=== PATIENT | male | born 1985 | race Caucasian/White ===

== ENCOUNTER 2019-02-05 11:33 | Emergency (ER) | payer MEDICAID, OTHER ==
[~2019-02-05] VITALS: Ht 185.4 cm; Wt 85.0 kg
[~2019-02-05 11:33] MED LIST: CLIN150C8 PO; LIDOcaine 1% W/epiNEPHrine 1:100,000 20ml vial ONE; RANI300T7 PO
[2019-02-05 12:03] VITALS: BP 132/77
[2019-02-05] MEDS ORDERED: CEPH-572 PO (13:19)
[2019-02-05] MEDS ORDERED: SULF1TAB49 PO (13:19)
[2019-02-05] MEDS ORDERED: TETanus/Pertussis (Acell)/Diphther VAC/PF (Tdap-Adult) 0.5ml syringe IMVAC ONE (13:20)
== END 2019-02-05 13:53 | disposition home or self-care (01) ==
LOC: ER 11:34
DX: L02.415 Cutaneous abscess of right lower limb (principal); F12.90 Cannabis use, unspecified, uncomplicated; Z98.890 Other specified postprocedural states; Z79.899 Other long term (current) drug therapy
CPT/HCPCS: 10060; 99283

== ENCOUNTER 2019-05-21 20:08 | Emergency (ER) | payer MEDICAID ==
[~2019-05-21] VITALS: Ht 188 cm; Wt 83.0 kg
[~2019-05-21 20:08] MED LIST changes: -LIDOcaine 1% W/epiNEPHrine 1:100,000 20ml vial ONE
[2019-05-21] MEDS ORDERED: acetaminophen 325mg tablet PO ONE (20:15)
[2019-05-21] MEDS ORDERED: ALBU8HFA PO (21:00)
[2019-05-21 21:12] VITALS: BP 124/81
== END 2019-05-21 21:14 | disposition home or self-care (01) ==
LOC: ER 20:09
DX: J20.9 Acute bronchitis, unspecified (principal); F17.200 Nicotine dependence, unspecified, uncomplicated; F12.90 Cannabis use, unspecified, uncomplicated; Z79.2 Long term (current) use of antibiotics; Z79.899 Other long term (current) drug therapy
CPT/HCPCS: 99283

== ENCOUNTER 2020-11-04 09:10 | Emergency (ER) | payer MEDICAID ==
[~2020-11-04] VITALS: Ht 188 cm; Wt 83.7 kg
[2020-11-04 09:20] VITALS: BP 133/96
[2020-11-04] MEDS ORDERED: HYDROcodone/acetaminophen 10/325mg tab PO ONE (10:45)
--- NOTE | 2020-11-04 10:56 | NUR ---
PATIENT IS SLEEPY AND HAVING TROUBLE KEEPING EYES OPEN. COMPLAINING OF PAIN BUT THEN DOZES OFF. JAQUAN CHUN AWARE. OK TO HOLD [facility] AT THIS TIME.
[2020-11-04] MEDS ORDERED: TRAM50TA2 PO (11:06)
[2020-11-04] MEDS ORDERED: IBUP-1984 PO (11:06)
--- NOTE | 2020-11-04 11:06 | NUR ---
PATIENT RE-EVALUATED BY JAQUAN CHUN. OK TO GIVE [facility]. PATIENT COMPLAINING OF 10/10 PAIN.
== END 2020-11-04 11:41 | disposition home or self-care (01) ==
LOC: ER 09:11
DX: S63.501A Unspecified sprain of right wrist, initial encounter (principal); M25.531 Pain in right wrist; F12.90 Cannabis use, unspecified, uncomplicated; Z79.2 Long term (current) use of antibiotics; Z98.890 Other specified postprocedural states; Z79.899 Other long term (current) drug therapy; V00.131A Fall from skateboard, initial encounter; Y93.89 Activity, other specified; Y92.89 Other specified places as the place of occurrence of the external cause; Y99.8 Other external cause status
CPT/HCPCS: 29125; 73110; 73130; 99283; 99284

== ENCOUNTER 2022-05-10 15:43 | Emergency (ER) | payer MEDICAID ==
[~2022-05-10] VITALS: Ht 185.4 cm; Wt 88.0 kg
[2022-05-10 15:44] VITALS: BP 171/101
== END 2022-05-10 16:50 | disposition left against medical advice (07) ==
LOC: ER 15:43
DX: L02.91 Cutaneous abscess, unspecified (principal); Z53.21 Procedure and treatment not carried out due to patient leaving prior to being seen by health care provider

== ENCOUNTER 2024-11-15 16:10 | Emergency (ER) | payer MEDICAID ==
[~2024-11-15] VITALS: Ht 177.8 cm; Wt 84.1 kg
[~2024-11-15 16:10] MED LIST changes: +CLIN-214 PO; -CLIN150C8 PO
[2024-11-15] MEDS ORDERED: HYDR-3965 PO ×2 (17:56→17:59)
[2024-11-15] MEDS ORDERED: ANBESOL TP (17:56)
[2024-11-15] MEDS ORDERED: CLIN300C63 PO (17:56)
[2024-11-15] MEDS ORDERED: CLIN-224 PO (17:59)
--- NOTE | 2024-11-15 18:00 | Physician Documentation ---
HPI ~ General Chief Complaint: Tooth Problem Stated Complaint: MOUTH PAIN Time Seen by MD: 16:55 OK to notify your PCP?: Yes Primary Medical Doctor: CHAVEZ Source: patient Mode of Arrival: POV Exam Limitations: no limitations History of Present Illness HPI Comment 39-year-old male with dental pain as multiple teeth that have been worn down to the gum and appear broken on the left lower jaw. He states he has a dental appointment December 08 that is upcoming to have a couple of these teeth removed. He has not had any antibiotics yet for this issue. Medication Reconciliation Allergies: Coded Allergies: cephalexin (Verified Allergy, Unknown, 11/15/24) Scheduled Benzocaine* (Anbesol*), 1 APPLIC TP Q2H Clindamycin HCL* (Clindamycin HCL*), 1 CAP PO Q8H Ranitidine Hcl (Zantac), 1 TAB PO HS Scheduled PRN Hydrocodone Bit/Acetaminophen 5/325 MG (Pag[place] 5/325 MG), 1 TAB PO TID PRN PRN for pain Past Medical History Past Medical History: Extremity Fracture Past Surgical History: abdominal surgery Alcohol Use: None Drug Use: marijuana Lives with: S/O Lives In: Home Review of Systems All Other Systems at this time: Reviewed and Negative Physical Exam Vital Signs: RN Vital Signs have been reviewed: Yes, Temperature: 97.8, Source: Temporal, Heart Rate: 68, Respiratory Rate: 18, BP: 173/104, Pulse Oximetry: 98, Weight: 84.090 Oxygen Flow Rate: 0 Pulse Oximetry Reflects: adequate oxygenation Physical Exam General: Alert, no distress. HEENT: No injection, moist mucous membranes. Neck: Full range of motion. Respiratory: No respiratory distress, equal chest rise and fall. Chest: No accessory muscle use. Cardiovascular: Regular rate and rhythm. Gastrointestinal: Nondistended. Extremities: Normal range of motion, no deformity. Neurologic: Oriented x4. Psychiatric: Normal mood and affect. Skin: Normal color, warm and dry. Mouth/Throat: normal mouth inspection Palate: normal inspection Teeth/Gums: carious, missing teeth, tender, gingiva redness, gingiva swelling Teeth/Gums teeth # 19, 20 and 21 Face: normal inspection Progress Results/Orders Reviewed/noted all lab results: Yes Results/Orders Orders - PEG MARTINEZ [employer] Clindamycin Capsule (Cleocin Capsule) (8/10/25 18:00) Hydrocodone/Apap 5/325mg Tab ([place] 5/32 (11/15/24 18:00) Naproxen Tablet (Naprosyn Tablet) (11/15/24 18:00) Vital Signs 11/15/24 16:12 Temp 97.8 Pulse 68 Resp 18 B/P (MAP) 173/104 Pulse Ox 98 O2 Flow Rate 0 Medical Decision Making Additional info obtained from: old records Findings 39-year-old male with dental abscess to left lower jaw. He has multiple teeth that we will need removed. He states that he has a dental appointment coming up on December 08. Prescribed clindamycin, benzocaine and Pag[place] to help with the pain and infection. Differential Dx:Considerations: Include: Facial Cellulitis, Periapical abscess, Pulpitis, Tooth eruption, Tooth Fracture, Trigeminal neuralgia, Tooth subluxation Departure Disposition: HOME / SELF CARE / HOMELESS Impression: Primary Impression: Dental abscess Condition: Stable Discharge Instructions: Dental Abscess Additional Instructions: Follow up with dentist as scheduled and return back here for any new or worsening symptoms. Referrals: NO PRIMARY CARE PROVIDER (PCP) Prescriptions Hydrocodone Bit/Acetaminophen 5/325 MG (P[place]eland 5/325 MG) 5 Mg/325 Mg Tablet 1 TAB PO TID PRN PRN for pain for 5 Days, #15 TAB Prov: PEG MARTINEZ [employer] 11/15/24 Clindamycin HCL* (Clindamycin HCL*) 300 Mg Capsule 1 CAP PO Q8H for 10 Days, #30 CAP 0 Refills Prov: PEG MARTINEZ [employer] 11/15/24 Benzocaine* (Anbesol*) 12 Ml Bottle 1 APPLIC TP Q2H for 7 Days, #1 EACH Prov: PEG MARTINEZ [employer] 11/15/24 Education Educated: Patient Educated regarding: diagnosis, treatment, prognosis, need for follow up Additional Comment Medical Screen Exam This patient recieved a medical screening examination. After reviewing the individual's medical complaints with presenting symptoms and performing an appropriate physical examination, it was determined that no immediate life- threatening emergency medical condition is present. This individual is also not a women having contractions. Signature Scribe Signature: . Attestation: Parts of this note were created using [employer] voice recognition software program. While efforts were made to correct any mistakes made by this voice recognition software program, nonsensical phrases may remain in this note. In addition, there may be errors and syntax, grammar, content and spelling. Scribed for Peg Martinez by Peg Watts NP . 11/15/24 18:02 PEG MARTINEZ Nov 15, 2024 18:00
[2024-11-15] MEDS: HYDROcodone/acetaminophen 5mg/325mg tablet PO ONE (18:08)
[2024-11-15 18:15] VITALS: BP 170/86; PULSE 86; RESP 16; TEMP 97.8; O2SAT 99
== END 2024-11-15 18:18 | disposition home or self-care (01) ==
LOC: ER 16:12
DX: K04.7 Periapical abscess without sinus (principal); Z88.1 Allergy status to other antibiotic agents
CPT/HCPCS: 99284

== ENCOUNTER 2024-12-09 17:02 | Emergency (ER) | payer MEDICAID ==
[~2024-12-09] VITALS: Ht 185.4 cm; Wt 90.5 kg
[~2024-12-09 17:02] MED LIST changes: -CLIN-214 PO; +CLIN-224 PO
[2024-12-09 17:44] VITALS: BP 110/77; PULSE 67; RESP 18; O2SAT 99
--- NOTE | 2024-12-09 17:52 | Physician Documentation ---
History of Present Illness ~ Chief Complaint: Medical Clearance Stated Complaint: DOCTOR REFERAL Time Seen by MD: 17:46 Primary Medical Doctor: CHAVEZ CASTELLANOS Patient is seen today with complaints of needing an EKG as requested by the methadone clinic possibly to increase patient's methadone dose. Patient denies any chest pain or shortness of breath or abdominal pain or nausea, vomiting, diarrhea. Patient has no other concern or complaint at this time. Tetanus within 5 years?: No Medication Reconciliation Allergies: Coded Allergies: cephalexin (Verified Allergy, Unknown, 11/15/24) Scheduled Clindamycin HCL* (Clindamycin HCL*), 1 CAP PO Q8H Ranitidine Hcl (Zantac), 1 TAB PO HS Past Medical History Past Medical History: Extremity Fracture Past Surgical History: abdominal surgery Alcohol Use: None Drug Use: marijuana Lives with: S/O Lives In: Home Review of Systems Constitutional: Denies: chills, fever, weakness Eyes: Denies: pain, blurred vision ENT: Denies: ear pain, nose pain, throat pain, mouth pain Respiratory: Denies: cough, shortness of breath Cardiovascular: Denies: chest pain, palpitations Gastrointestinal: Denies: abdominal pain, nausea, vomiting Genitourinary: Denies: burning, dysuria Male Genitalia: Denies: penile discharge, testicular pain Neurological: Denies: headache, dizziness Musculoskeletal: Denies: pain, swelling Integumentary: Denies: rash, lesions Allergic/Immunologic: Denies: hives, itching Hematologic/Lymphatic: Denies: no symptoms reported Psychiatric: Denies: depression, anxiety Physical Exam Vital Signs: Temperature: 97.8, Source: Temporal, Heart Rate: 67, Respiratory Rate: 18, BP: 110/77, Pulse Oximetry: 99, Weight: 90.450 Physical Exam General: Awake and Alert, no acute distress. HEENT: Conjunctiva pink, Sclera clear, Mucus Membranes moist. Neck: Supple without masses and tenderness. Resp: Unlabored. Lungs clear to auscultation bilaterally. Heart: Regular Rate and rhythm, normal S1 and S2 without murmur, rub or gallop. Abdomen: Soft and non tender no organomegaly Extremities: No cyanosis,clubbing or edema. Skin: Warm and Dry. Progress Results/Orders Results/Orders Vital Signs 12/09/24 17:44 Temp 97.8 Pulse 67 Resp 18 B/P (MAP) 110/77 Pulse Ox 99 EKG/XRAY/CT/US/VASC/MRI EKG : Additional Comment EKG interpreted by myself today shows normal sinus rhythm, regular rate at 75 beats per minute, no ST segment elevation or ischemic changes and no axis deviation. Medical Decision Making Findings Patient is seen today with complaints of needing an EKG as requested by the methadone clinic possibly to increase patient's methadone dose. Patient denies any chest pain or shortness of breath or abdominal pain or nausea, vomiting, diarrhea. Patient has no other concern or complaint at this time. Patient is medically cleared and EKGs unremarkable for methadone clearance as well as possible dose increase in methadone. Patient will return to ED with any worsening, concerning or changing symptoms. Departure Disposition: 01 HOME / SELF CARE / HOMELESS Impression: Primary Impression: General medical exam Condition: Stable Discharge Instructions: Medical Screening Exam Additional Instructions: Patient is medically cleared and EKGs unremarkable for methadone clearance as well as possible dose increase in methadone. Patient will return to ED with any worsening, concerning or changing symptoms. Referrals: NO PRIMARY CARE PROVIDER (PCP) Signature Scribe Signature: No scribe Attestation: No scribe KENYATTA JARA PAC Dec 09, 2024 17:52
[2024-12-09 18:07] VITALS: TEMP 97.8
--- NOTE | 2024-12-10 06:13 | ELECTROCARDIOGRAPH REPORT ---
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
== END 2024-12-09 18:09 | disposition home or self-care (01) ==
LOC: ER 17:03
DX: Z00.00 Encounter for general adult medical examination without abnormal findings (principal); F12.90 Cannabis use, unspecified, uncomplicated; Z88.1 Allergy status to other antibiotic agents; Z79.899 Other long term (current) drug therapy
CPT/HCPCS: 93005; 99283